=== PATIENT | male | born 1975 | race Caucasian/White ===

== ENCOUNTER 2022-05-12 07:00 | Outpatient (CLI) | payer OTHER, SELFPAY ==
--- NOTE | 2022-05-12 07:15 | CRLHL7_ITS ---
For Patients: As a result of the Century Cures Act, medical imaging exams and procedure reports are released immediately into your electronic medical record. You may view this report before your referring provider. If you have questions, please contact your health care provider. INDICATION: Neck pain. Left arm pain TECHNIQUE: Noncontrast sagittal T1, T2, STIR and axial GRE sequences are provided. No comparisons. FINDINGS: The overall stature, alignment and intrinsic marrow signal of the cervical spine is within normal limits. Cervical cord is normal. C2-3: Unremarkable C3-4, C4-5, C5-6, C6-7: Minor disc osteophyte complex effaces the ventral thecal sac but results in no central canal or foraminal narrowing. C7-T1: Unremarkable. IMPRESSION: 1. Minor degenerative changes within the mid cervical spine resulting in no significant central canal or foraminal narrowing. 2. Otherwise, unremarkable MRI of the cervical spine. Dictated by Luca Valle MD @ 05/12/2022 8:41:40 AM (Electronically Signed)
== END 2022-05-12 07:01 | disposition home or self-care (01) ==
PROVIDERS: PCP Family Medicine; Visit Provider Chiropractor
DX: M54.2 Cervicalgia (principal); M79.622 Pain in left upper arm
CPT/HCPCS: 72141

== ENCOUNTER 2023-01-25 12:40 | Emergency (ER) | payer OTHER, SELFPAY ==
[2023-01-25] VITALS (11 sets, daily range): BP systolic 133–174; BP diastolic 72–95; PULSE 70–88; RESP 14–22; TEMP 37.1; O2SAT 95–100
--- NOTE | 2023-01-25 16:03 | ED_ITS ---
HPI - General Adult General Time Seen by Provider: 16:07 Date Seen: 01/25/23 Chief complaint: Flank Pain Stated complaint: Kidney Stones Time Seen by Provider: 01/25/23 16:01 Source: patient and RN notes reviewed Mode of arrival: ambulatory Limitations: no limitations History of Present Illness HPI narrative: When I initially went into see the patient, he was in the bathroom collecting his urine. I did speak with his , they were in the ER in [facility] [place] [address] on Wednesday, was diagnosed with a kidney stone. He was given Percocet and then has been using ibuprofen for pain management. He has been using Zofran for nausea. Wednesday felt a bit better, did eat some. Has been drinking throughout this but really since Wednesday has not eaten. He has not had a bowel movement through this. The did try milk of magnesium twice yesterday in MiraLax. Did try an enema this morning. He is having ongoing abdominal pain but no fevers. I did come back to and he was gone at CT, the 3rd time he was in the room, was comfortable, really had no more pain or nausea. Had had improvement with the Toradol in Zofran that I ordered. He has had nausea wit hout vomiting. This is his 1st diagnosis of a kidney stone. He was not placed on Flomax in the do have a friend that is a nurse, he is interested in trying this to see if it does help. States he was told he had a 2 mm stone. His symptoms are on the left side. His pain does radiate towards the testicle. He notes that his blood pressure is up, we did review that pain and stressful situations like being in the ED can certainly do this. Would recommend that he observe for now, see how his blood pressure is once this is all resolved. Related Data Home Medications Medication Instructions Recorded Confirmed ibuprofen 600 mg tablet 600 mg PO 3XD 01/25/23 01/25/23 ondansetron 4 mg disintegrating mg PO 01/25/23 tablet oxycodone-acetaminophen 5 mg-325 1 - 2 tab PO Q4-6H PRN pain 01/25/23 01/25/23 mg tablet Previous Rx's Medication Instructions Recorded sennosides 8.6 mg capsule (senna) 8.6 mg PO BID PRN constipation #30 01/25/23 caps tamsulosin 0.4 mg capsule (Flomax) 0.4 mg PO DAILY #10 caps 01/25/23 Allergies Allergy/AdvReac Type Severity Reaction Status Date / Time No Known Drug Allergies Allergy Unknown Uncoded 05/28/22 15:17 Review of Systems Status of ROS: Reports: 6 or more systems reviewed and unremarkable except as noted in History and below PFSH PFSH Social History Smoking Status: Never smoker Do you use any of these nicotine containing products: None How often do you have a drink containing alcohol: never How often do you have six or more drinks on one occasion: Never AUDIT-C Alcohol total score: 0 Non-prescribed substance use: denies use Exam Const: Vital Signs, click to edit/add: Vital Signs - 24 hr 01/25/23 12:45 01/25/23 15:44 01/25/23 16:18 Temperature 98.7 F Pulse Rate [Right Pulse Oximeter] 88 75 73 Respiratory Rate 22 14 18 Blood Pressure [Ri ght Upper Arm] 174/72 H 133/82 149/95 H Pulse Oximetry 100 98 96 Oxygen Delivery Me thod Room Air Room Air Room Air 01/25/23 16:25 Temperature Pulse Rate [Right Pulse Oximeter] Respiratory Rate Blood Pressure [Ri ght Upper Arm] Pulse Oximetry 97 Oxygen Delivery Me thod Course Course ED Course: Will reimage patient, establish IV, initiate IV fluids, IV Toradol, IV Zofran. We will see if the initial assessment of the CT is correct, also look at bowel for constipation. Will recheck basic labs. His had reviewed that his initial white blood count on Wednesday was elevated, did review with him that this frequently can be the case was this is a very significant painful process. If he is not having fever, that is very reassuring. Reevaluation(s) Time of Reevaluation #1: 19:23 Reevaluation #1: Have reviewed his CT report with him, 2-3 mm stone that has moved down and is at the proximal UVJ. His creatinine is at 2, on January 22 it was 1.17. White blood count on January 22 was 14,500, this is stable to slightly better today. Patient reports that he only has 1 tablet of Percocet left, 2 tablets of Zofran. Will give Toradol 20 tablets, Percocet 10 tablets and Zofran 10 tablets from [facility]. Will send in the Flomax prescription to his usual pharmacy. I will try to talk to Urology keon about his creatinine, believe they will likely just have him followed clinically but will attempt to review this with them. Consultations Consultation #1: Spoke with Urology on-call. He did sure concerns with my questioning of the creatinine going from 1.17-2 from Wednesday. He would question why the other kidney was not function as well to cover the filtration. I asked generally what they would do to test for functionality of the kidneys, he states the usually consult Nephrology. There are no beds at [facility] right now, there is no possible transfer. He did have recommendation of observing the patient overnight here and hydrating him, rechecking kidney function morning and potential referral if not improved. I did bring this back to the patient, he does not want to come into the hospital. I a have discussed with him that there can be kidney damage, this is something that needs to be followed. He states he will get an outpatient creatinine at his clinic tomorrow. Did review with him that we need to alter the plan and he should not take further Toradol or ibuprofen until we know his kidney function is improving. He is fine with just using the Percocet. Time: 19:39 Vital Signs Vital signs: Initial Vital Signs Temperature 98.7 F 01/25/23 12:45 Temperature Source Temporal Artery Scan 01/25/23 12:45 Pulse Rate 88 01/25/23 12:45 Pulse Rhythm Regular 01/25/23 12:45 Respiratory Rate 22 01/25/23 12:45 Blood Pressure 174/72 H 01/25/23 12:45 Blood Pressure Mean 106 H 01/25/23 12:45 Blood Pressure Position Sitting 01/25/23 12:45 Pulse Oximetry 100 01/25/23 12:45 Oxygen Delivery Method Room Air 01/25/23 12:45 Vital Signs Temperature 98.7 F 01/25/23 12:45 Pulse Rate 88 01/25/23 12:45 Respiratory Rate 22 01/25/23 12:45 Blood Pressure 174/72 H 01/25/23 12:45 Pulse Oximetry 100 01/25/23 12:45 Oxygen Delivery Method Room Air 01/25/23 12:45 Temperature 98.7 F 01/25/23 12:45 Pulse Rate 73 01/25/23 16:18 Respiratory Rate 18 01/25/23 16:18 Blood Pressure 149/95 H 01/25/23 16:18 Pulse Oximetry 97 01/25/23 16:25 Oxygen Delivery Method Room Air 01/25/23 16:18 Medications Administered Medications: Generic Name Dose Route Start Last Admin Trade Name Odin PRN Reason Stop Dose Admin Sodium Chloride 1,000 mls @ 1,000 mls/hr 01/25/23 18:27 01/25/23 19:58 0.9 % Sodium Chloride 1000 Ml IV 01/25/23 19:26 Infused .Q1H VELMA Infusion Discontinued Medications Generic Name Dose Route Start Last Admin Trade Name Odin PRN Reason Stop Dose Admin Sodium Chloride 1,000 mls @ 500 mls/hr 01/25/23 16:10 01/25/23 18:40 0.9 % Sodium Chloride 1000 Ml IV 01/25/23 18:09 Infused .Q2H VELMA Infusion Ketorolac Tromethamine 15 mg 01/25/23 16:10 01/25/23 16:10 Ketorolac 15 Mg/Ml Inj IVP 01/25/23 16:11 15 mg ONCE ONE Administration Tamsulosin HCl 0.4 mg 01/25/23 17:24 01/25/23 17:40 Tamsulosin Hcl 0.4 Mg Capsule PO 01/25/23 17:25 0.4 mg ONCE ONE Administration Medical Decision Making Lab Data Lab results reviewed: Yes I reviewed the patient's lab results Labs: Lab Results 01/25/23 01/25/23 Range/Units 16:20 17:00 WBC 12.97 H (4.50-11.00) K/uL RBC 5.24 (4.30-5.90) m/uL Hgb 15.9 (13.5-17.5) gm/dL Hct 47.0 (37.0-53.0) % MCV 90 (80-100) fL MCH 30 (26-34) pg MCHC 34 (32-36) gm/dL RDW Coeff of Govind 12.6 (11.5-15.5) % Plt Count 231 (140-440) K/uL Neut % (Auto) 81.4 H (42.0-72.0) % Lymph % (Auto) 9.4 L (20-44) % [place] % (Auto) 8.7 (0.0-11.0) % Eos % (Auto) 0.2 (0.0-7.0) % Baso % (Auto) 0.1 (0.0-3.0) % Neut # (Auto) 10.60 H (1.7-7.0) K/uL Lymph # (Auto) 1.20 (0.90-2.90) K/uL [place] # (Auto) 1.10 H (0.00-0.90) K/UL Eos # (Auto) 0.00 (0.00-0.50) K/uL Baso # (Auto) 0.00 (0.00-0.30) K/uL Abs Immat Gran (auto) 0.00 (0.00-0.30) K/uL Imm/Tot Granulo (auto) 0.2 % Sodium 136 (135-149) mmol/L Potassium 4.1 (3.6-5.1) mmol/L Chloride 101 (96-114) mmol/L Carbon Dioxide 25 (20-32) mmol/L Anion Gap 10 (7-15) mEq/L BUN 19 (5-24) mg/dL Creatinine 2.0 H (0.5-1.5) mg/dL Estimated GFR 40 ml/min Glucose 108 (60-115) mg/dL Lactate 1.3 (0.5-1.9) mmol/L Calcium 9.2 (8.4-10.6) mg/dL C-Reactive Protein 6.4 H (0.5-1.0) mg/dL Urine Color Yellow (Yellow) Urine Appearance Clear (Clear) Urine pH 5.5 (5.0-8.5) Ur Specific [place] 1.020 (1.000-1.030) Urine Protein Negative (Negative) Urine Glucose (UA) Negative (Negative) Urine Ketones 3+ A (Negative) Urine Blood Trace-lysed A (Negative) Urine Nitrite Negative (Negative) Urine Bilirubin Negative (Negative) Urine Urobilinogen 0.2 (0.2-1.0) Ur Leukocyte Esterase Negative (Negative) Urine RBC 2-5 A (0-2) Urine WBC 2-5 (0-5) Ur Squamous Epith Cells None (None-Few) Amorphous Sediment Few A (None) Urine Bacteria None (None) Imaging Data CT scan - abdomen: Attestation: I have reviewed the pertinent imaging results. My impression: Did review CT, do see small stone on the left side juxtaposed next to the bladder, will await Radiology over-read. Radiologist's impression: Patient: STACI NELSON Facility:?[facility] Patient ID:?[id number] Site Patient ID:?[id number]. Site :?[id number] Study:?CT Abdomen/Pelvis STONE STUDY-01/25/2023 5:10:41 PM Ordering Physician:Mannie Anaya Final Report: INDICATION: Worsening abdominal pain. History of a kidney stone. TECHNIQUE: CT abdomen and pelvis without contrast. COMPARISON: 01/22/2023 FINDINGS: A 2-3 mm distal left ureteral stone has migrated further distally, and is now just proximal to the UVJ. There is relatively stable mild left-sided hydroureteronephrosis. The remainder of the exam is essentially unchanged other than the development of mild bibasilar atelectasis. IMPRESSION: See above. Please note that all CT scans at this facility use dose modulation, iterative reconstruction, and/or weight-based dosing when appropriate to reduce radiation dose to as low as reasonably achievable. Dictated by Harpreet Burr MD @ 01/25/2023 7:06:21 PM (Electronic Signature) Discharge Plan Discharge Clinical Impression: Renal colic on left side Patient Disposition: Home, Self-Care Condition: Stable Instructions: Kidney Stones (ED), Renal Colic (ED) Additional Instructions: Can use the Percocet for more severe pain. Prescription for Zofran was also given. Take the Flomax daily until the stone has passed. Need to have your creatinine rechecked tomorrow, if it is further elevating, need to be seen where there is urology. If the stone is not passing an your kidney function continues to increase, develops severe abdominal pain or fever, have vomiting that will not allow you to take medicines with an on passed kidney stone, all of the should cause you to seek re-evaluation. If using the Percocet, use MiraLax 17 g daily. Start with senna 1 tablet twice a day, can move up to 2 tablets twice a day if needed to help control narcotic associated constipation. Once you are off the Percocet, your bowel habits should return to normal and you can wean off the stool medications. Do not recommend further use of the ibuprofen or NSAIDs, do not take the Toradol until kidney function is shown to be improved or normalized. Activity Level: Activity as Tolerated Prescriptions: New senna 8.6 mg capsule 8.6 mg PO BID PRN (Reason: constipation) Qty: 30 0RF tamsulosin [Flomax] 0.4 mg capsule 0.4 mg PO DAILY Qty: 10 0RF No Action oxycodone-acetaminophen 5-325 mg tablet 1 - 2 tab PO Q4-6H PRN (Reason: pain) ibuprofen 600 mg tablet 600 mg PO 3XD ondansetron 4 mg tablet,disintegrating PO Follow Up/Referrals: Skip Hernandez MD [Primary Care Provider] - Stand Alone Forms: [employer] Info Instructions
--- NOTE | 2023-01-25 16:09 | CRLHL7_ITS ---
For Patients: As a result of the Century Cures Act, medical imaging exams and procedure reports are released immediately into your electronic medical record. You may view this report before your referring provider. If you have questions, please contact your health care provider. INDICATION: Worsening abdominal pain. History of a kidney stone. TECHNIQUE: CT abdomen and pelvis without contrast. COMPARISON: 01/22/2023 FINDINGS: A 2-3 mm distal left ureteral stone has migrated further distally, and is now just proximal to the UVJ. There is relatively stable mild left-sided hydroureteronephrosis. The remainder of the exam is essentially unchanged other than the development of mild bibasilar atelectasis. IMPRESSION: See above. Please note that all CT scans at this facility use dose modulation, iterative reconstruction, and/or weight-based dosing when appropriate to reduce radiation dose to as low as reasonably achievable. Dictated by Harpreet Burr MD @ 01/25/2023 7:06:21 PM (Electronically Signed)
[2023-01-25] MEDS: KETOROLAC 15 MG/ML inj IVP (16:10)
[2023-01-25] MEDS: 0.9 % SODIUM CHLORIDE 1000 ml 1,000 ML 500 ML IV (16:10)
[2023-01-25 16:27] LABS: Lactate* 1.3 mmol/L (0.5-1.9)
[2023-01-25 16:29] LABS: Basophils Percent Auto 0.1 % (0.0-3.0); Eosinophils Percent Auto 0.2 % (0.0-7.0); Hemoglobin* 15.9 gm/dL (13.5-17.5); Immature Granulocytes Pct Auto 0.2 %; Lymphocytes Percent Auto 9.4 % (20-44); Mean Corpuscular HGB Conc 34 gm/dL (32-36); Mean Corpuscular Hemoglobin 30 pg (26-34); Mean Corpuscular Volume 90 fL (80-100); Monocytes Percent Auto 8.7 % (0.0-11.0); Neutrophils Percent Auto 81.4 % (42.0-72.0); Platelet Count* 231 K/uL (140-440); RDW Coefficient of Variation % 12.6 % (11.5-15.5); Red Blood Count 5.24 m/uL (4.30-5.90); White Blood Count* 12.97 K/uL (4.50-11.00)
[2023-01-25 16:30] LABS: Slide Review Reflex No
[2023-01-25 16:49] LABS: Chloride* 101 mmol/L (96-114)
[2023-01-25 16:50] LABS: Potassium* 4.1 mmol/L (3.6-5.1); Sodium* 136 mmol/L (135-149)
[2023-01-25 16:52] LABS: Estimated Glomerular Filt Rate 40 ml/min
[2023-01-25 16:53] LABS: Anion Gap 10 mEq/L (7-15); Blood Urea Nitrogen* 19 mg/dL (5-24); Carbon Dioxide* 25 mmol/L (20-32); Glucose* 108 mg/dL (60-115)
[2023-01-25 16:54] LABS: Calcium* 9.2 mg/dL (8.4-10.6)
[2023-01-25 16:56] LABS: C Reactive Protein* 6.4 mg/dL (0.5-1.0)
[2023-01-25] MEDS: TAMSULOSIN HCL 0.4 MG CAPSULE PO (17:40)
[2023-01-25 18:03] LABS: Appearance Urine Clear (Clear); Bilirubin Urine Negative (Negative); Blood Urine Trace-lysed (Negative); Color Urine Yellow (Yellow); Glucose Urine Negative (Negative); Ketones Urine 3+ (Negative); Leukocyte Esterase Urine Negative (Negative); Nitrite Urine Negative (Negative); Protein Urine Negative (Negative); Urobilinogen Urine 0.2 (0.2-1.0); pH Urine 5.5 (5.0-8.5)
[2023-01-25 18:26] LABS: Amorphous Sediment Urine Few
[2023-01-25] MEDS: 0.9 % SODIUM CHLORIDE 1000 ml 1,000 ML IV (19:00)
--- NOTE | 2023-01-25 19:15 | ED.NURSE ---
Pt report given off to oncoming RN
== END 2023-01-25 20:33 | disposition home or self-care (01) ==
PROVIDERS: Emergency Provider Family Medicine; PCP Family Medicine
DX: N23 Unspecified renal colic (principal)
CPT/HCPCS: 36415; 74176; 80048; 81001; 83605; 85025; 86140; 87086; 94761; 96361; 96365; 96374; 96375; 99284; 99285; A9270; J1885; J7030

== ENCOUNTER 2023-01-28 04:51 | Emergency (ER) | payer OTHER, SELFPAY ==
[2023-01-28 04:57] VITALS: BP 146/80; PULSE 104; RESP 16; TEMP 37.2; O2SAT 98; BMI 27.7
[2023-01-28 05:15] LABS: Appearance Urine Clear (Clear); Bilirubin Urine Negative (Negative); Blood Urine 1+ (Negative); Color Urine Yellow (Yellow); Glucose Urine Negative (Negative); Ketones Urine Negative (Negative); Leukocyte Esterase Urine Negative (Negative); Nitrite Urine Negative (Negative); Protein Urine Negative (Negative); Urobilinogen Urine 0.2 (0.2-1.0)
[2023-01-28 05:24] LABS: RBC Urine 0-2 (0-2); Squamous Epithelial Cell Urine Few (None-Few); WBC Urine 0-2 (0-5)
--- NOTE | 2023-01-28 05:25 | CRLHL7_ITS ---
For Patients: As a result of the Century Cures Act, medical imaging exams and procedure reports are released immediately into your electronic medical record. You may view this report before your referring provider. If you have questions, please contact your health care provider. INDICATION: Fever right-sided abdominal pain, recently passed left stone COMPARISON: 01/22/2023, 01/25/2023 TECHNIQUE: CT of the abdomen and pelvis without intravenous contrast. Multiplanar axial, coronal, and sagittal reformats were reconstructed. Intravenous contrast: None. Oral contrast was not administered. FINDINGS: Lung bases: Bibasilar atelectasis. Liver: Normal size and non-contrast attenuation. Gallbladder and biliary tree: Normal gallbladder. No biliary duct dilation. Pancreas: Normal. Spleen: Normal size. Adrenal glands: Normal. No nodules. Kidneys and bladder: Normal size and position. No obvious cyst or mass. No calculi. No urinary tract dilation. The urinary bladder is normal. GI: Normal. No dilated segments. No abnormal bowel wall thickening. Moderate stool burden. The appendix is normal. Vessels: Normal caliber abdominal aorta with no calcified atherosclerotic plaques. Peritoneum: No free fluid. Lymph nodes: No adenopathy. Pelvis: Physiologic appearance of the reproductive organs. Bones: No fractures. No focal bone lesions. Normal for age. Abdominal wall: Fat containing left inguinal hernia. IMPRESSION: 1. Resolve urinary tract calculi and urinary tract dilatation. 2. Mild bibasilar atelectasis which is slightly worse than the most recent comparison. 3. Moderate stool burden which is minimally increased compared to previous exams. Please note that all CT scans at this facility use dose modulation, iterative reconstruction, and/or weight-based dosing when appropriate to reduce radiation dose to as low as reasonably achievable. Dictated by Soco Adrian MD @ 01/28/2023 7:05:33 AM (Electronically Signed)
[2023-01-28 05:36] LABS: Lactate* 1.1 mmol/L (0.5-1.9)
[2023-01-28 05:37] LABS: Basophils Absolute Auto 0.02 K/uL (0.00-0.30); Basophils Percent Auto 0.2 % (0.0-3.0); Eosinophils Absolute Auto 0.12 K/uL (0.00-0.50); Eosinophils Percent Auto 1.1 % (0.0-7.0); Hematocrit 41.8 % (37.0-53.0); Hemoglobin* 14.1 gm/dL (13.5-17.5); Immature Granulocytes Abs Auto 0.02 K/uL (0.00-0.30); Immature Granulocytes Pct Auto 0.2 %; Mean Corpuscular HGB Conc 34 gm/dL (32-36); Mean Corpuscular Hemoglobin 31 pg (26-34); Mean Corpuscular Volume 90 fL (80-100); Monocytes Percent Auto 8.7 % (0.0-11.0); Neutrophils Percent Auto 83.8 % (42.0-72.0); Platelet Count* 213 K/uL (140-440); RDW Coefficient of Variation % 12.7 % (11.5-15.5); Red Blood Count 4.63 m/uL (4.30-5.90); White Blood Count* 10.88 K/uL (4.50-11.00)
--- NOTE | 2023-01-28 05:37 | ED.GENADULT ---
HPI - General Adult General Chief complaint: Fever Stated complaint: fever after passing kidney stone Time Seen by Provider: 01/28/23 04:57 Source: patient Mode of arrival: ambulatory Limitations: no limitations History of Present Illness HPI narrative: 47-year-old male presents to the emergency department with fever and new onset right flank pain. Patient has a notable history of a kidney stone diagnosed last Wednesday which is 6 days ago. This was diagnosed in [place] per his report. He was evaluated in our ED 3 days ago. At that point the stone had moved to the UVJ and was 2-3 mm in size, on the left side. He had been having some mild constipation at the time but no fever. Notes are reviewed. He was given a few more Percocet tablets. His creatinine had gone up from 1.17 to 2. He declined admission and had the labs repeated the next day through his primary care provider and his creatinine had improved. It was suspected that the stone had then passed into the bladder. Within a few hours, he did pass a stone which he has strained and brought in to me today. He shows me a picture of the strainer and there was a little bit of blood in a touch of additional sediment and mucus associated with this as well. He has no other localizing symptoms of infection. There is no cough, no rash. He denies any jadyn dysuria. He did feel a little weak and generally unwell yesterday afternoon, fever up to 101 at home yesterday overnight. Has not tried any other interventions to help with symptoms. Did have a couple of small, hard bowel movements yesterday, does not feel as though the constipation is completely relieved but has not needed any narcotic medications for the last few days. Notes from 3 days ago reviewed. There was no jadyn stones seen on the right but I do view the images and I can see some tiny granular material on the right and the left side but nothing that would have been and at destructive type kidney stone besides the lesion known in the left UVJ. He does note some mild diffuse abdominal pain but mainly right lower flank area pain, achy and intermittent. No new injury or trauma. Past medical history is reviewed, no major long-term health problems. No prescription medications, no allergies. Nonsmoker. ROS is notable for the flank pain, generalized achiness and fever as stated above. Otherwise he denies times 12 systems. Related Data Home Medications Medication Instructions Recorded Confirmed oxycodone-acetaminophen 5 mg-325 1 - 2 tab PO Q4-6H PRN pain 01/25/23 01/25/23 mg tablet Previous Rx's Medication Instructions Recorded sennosides 8.6 mg capsule (senna) 8.6 mg PO BID PRN constipation #30 01/25/23 caps tamsulosin 0.4 mg capsule (Flomax) 0.4 mg PO DAILY #10 caps 01/25/23 nirmatrelvir 300 mg (150 mg See Rx Instructions PO .COMPLEX 01/28/23 x2)-ritonavir 100 mg tablet,dose #30 ea pack (Paxlovid) Allergies Allergy/AdvReac Type Severity Reaction Status Date / Time No Known Drug Allergies Allergy Unknown Uncoded 05/28/22 15:17 PFSH PFS Social History Smoking Status: Never smoker Do you use any of these nicotine containing products: None How often do you have a drink containing alcohol: never How often do you have six or more drinks on one occasion: Never AUDIT-C Alcohol total score: 0 Non-prescribed substance use: denies use Exam Const: Vital Signs, click to edit/add: Vital Signs - 24 hr 01/28/23 04:57 Temperature 98.9 F Pulse Rate [Pulse Oximeter] 104 H Respiratory Rate 16 Blood Pressure [Le ft Upper Arm] 146/80 H Pulse Oximetry 98 Oxygen Delivery Me thod Room Air Documenting provider has reviewed patient's vital signs: yes Common normals: no apparent distress and alert General appearance: cooperative, comfortable and well kempt HENMT: Common normals: normocephalic Head and scalp: normocephalic Face and sinus: normal facial exam Mouth: oral and palatal mucosa normal Eye: Common normals: conjunctivae normal General eye: normal appearance of both eyes Conjunctiva: conjunctiva(e) normal Neck & C-Spine: Common normals: full ROM and no lymphadenopathy Resp: Common normals: normal respiratory effort and no use of accessory muscles Effort & inspection: able to speak in complete sentences Cardio: Common normals: regular rate, regular rhythm, S1 normal heart sound, S2 normal heart sound and no murmurs Rate: regular rate Rhythm: regular rhythm Heart sounds: S1 normal and S2 normal GI: Common normals: Normal to inspection, nondistended, normoactive bowel sounds present, soft to palpation, non-tender, no hepatosplenomegaly and no masses Palpation: soft and no hepatosplenomegaly : Other: Mild lower right CVA area tenderness, not severe. Back & Pelvis: Thoracic spine/upper back: normal to inspection Extremity: Common normals: normal to inspection and normal capillary refill Neuro: Sensorium/orientation: alert Speech: speech normal Gait (neuro): normal gait Motor exam: no movement abnormalities noted Psych: Appearance: well kempt Attitude: engaged Activity/motor behavior: appropriate eye contact Mood and affect: euthymic mood Insight: insight good Judgement: judgment good Skin: Common normals: no rashes or lesions noted General skin exam: no rashes or lesions noted Course Course ED Course: Recent known left UVJ stone, likely passed based on symptoms. Recent elevation in creatinine that was corrected outpatient per patient. New onset fever concerning for infection. Mild tachycardia noted today. Concern for right-sided flank pain now which could be related to intra-abdominal processes, appendicitis, musculoskeletal etiology, constipation, urinary infection, new kidney stone, among others. I recommended repeat CT scan, basic labs, lactate, blood cultures. He declines pain medication at this time. I have also ordered a swab for COVID, influenza and other etiologies for fever. Results pending. Reevaluation(s) Time of Reevaluation #1: 07:11 Reevaluation #1: Patient counseled on findings, Paxlovid discussed. He accepts offer. No signs of kidney infection, retained stone, other intra-abdominal cause. Lab work is also reassuring. Suspect COVID is etiology of fever. Flank pain most likely related to constipation but could be multifactorial. Nonetheless no signs of any significant worrisome finding. Alarm symptoms regarding COVID discussed. He verbalizes understanding and agreement. Does want to start Paxlovid. Quarantine discussed. All questions answered. Follow-up if not improving Vital Signs Vital signs: Initial Vital Signs Temperature 98.9 F 01/28/23 04:57 Temperature Source Temporal Artery Scan 01/28/23 04:57 Pulse Rate 104 H 01/28/23 04:57 Respiratory Rate 16 01/28/23 04:57 Blood Pressure 146/80 H 01/28/23 04:57 Blood Pressure Mean 102 01/28/23 04:57 Blood Pressure Position Sitting 01/28/23 04:57 Pulse Oximetry 98 01/28/23 04:57 Oxygen Delivery Method Room Air 01/28/23 04:57 Vital Signs Temperature 98.9 F 01/28/23 04:57 Pulse Rate 104 H 01/28/23 04:57 Respiratory Rate 16 01/28/23 04:57 Blood Pressure 146/80 H 01/28/23 04:57 Pulse Oximetry 98 01/28/23 04:57 Oxygen Delivery Method Room Air 01/28/23 04:57 Temperature 98.9 F 01/28/23 04:57 Pulse Rate 104 H 01/28/23 04:57 Respiratory Rate 16 01/28/23 04:57 Blood Pressure 146/80 H 01/28/23 04:57 Pulse Oximetry 98 01/28/23 04:57 Oxygen Delivery Method Room Air 01/28/23 04:57 Medical Decision Making Lab Data Lab results reviewed: Yes I reviewed the patient's lab results Lab results narrative: Overall reassuring, COVID positive. No signs of overwhelming leukocytosis, slight left shift noted. Mild elevation of CRP but could be explained by the COVID. Urinalysis is unremarkable for infection. Labs: Lab Results 01/28/23 01/28/23 01/28/23 Range/Units 05:03 05:10 05:30 WBC 10.88 (4.50-11.00) K/uL RBC 4.63 (4.30-5.90) m/uL Hgb 14.1 (13.5-17.5) gm/dL Hct 41.8 (37.0-53.0) % MCV 90 (80-100) fL MCH 31 (26-34) pg MCHC 34 (32-36) gm/dL RDW Coeff of Govind 12.7 (11.5-15.5) % Plt Count 213 (140-440) K/uL Neut % (Auto) 83.8 H (42.0-72.0) % Lymph % (Auto) 6.0 L (20-44) % [place] % (Auto) 8.7 (0.0-11.0) % Eos % (Auto) 1.1 (0.0-7.0) % Baso % (Auto) 0.2 (0.0-3.0) % Neut # (Auto) 9.10 H (1.7-7.0) K/uL Lymph # (Auto) 0.70 L (0.90-2.90) K/uL [place] # (Auto) 0.90 (0.00-0.90) K/UL Eos # (Auto) 0.12 (0.00-0.50) K/uL Baso # (Auto) 0.02 (0.00-0.30) K/uL Abs Immat Gran (auto) 0.02 (0.00-0.30) K/uL Imm/Tot Granulo (auto) 0.2 % Sodium 136 (135-149) mmol/L Potassium 4.1 (3.6-5.1) mmol/L Chloride 104 (96-114) mmol/L Carbon Dioxide 24 (20-32) mmol/L Anion Gap 8 (7-15) mEq/L BUN 13 (5-24) mg/dL Creatinine 0.9 (0.5-1.5) mg/dL Estimated Creat Clear 112.21 Estimated GFR 105 ml/min Glucose 116 H (60-115) mg/dL Lactate 1.1 (0.5-1.9) mmol/L Calcium 8.9 (8.4-10.6) mg/dL Total Bilirubin 0.7 (0.1-1.5) mg/dL AST 26 (12-35) U/L ALT 25 (4-50) U/L Alkaline Phosphatase 69 (40-150) U/L C-Reactive Protein 4.8 H (0.5-1.0) mg/dL Total Protein 7.5 (6.0-8.3) g/dL Albumin 4.4 (3.3-5.0) g/dL Urine Color Yellow (Yellow) Urine Appearance Clear (Clear) Urine pH 6.0 (5.0-8.5) Ur Specific [place] 1.020 (1.000-1.030) Urine Protein Negative (Negative) Urine Glucose (UA) Negative (Negative) Urine Ketones Negative (Negative) Urine Blood 1+ A (Negative) Urine Nitrite Negative (Negative) Urine Bilirubin Negative (Negative) Urine Urobilinogen 0.2 (0.2-1.0) Ur Leukocyte Esterase Negative (Negative) Urine RBC 0-2 (0-2) Urine WBC 0-2 (0-5) Ur Squamous Epith Cells Few (None-Few) Urine Bacteria None (None) SARS-CoV-2 (PCR) POSITIVE SARS-CoV-2 A (Negative) Influenza Type A (PCR) Negative PCR FLU A (Negative) Influenza Type B (PCR) Negative PCR FLU B (Negative) RSV (PCR) Negative PCR RSV (Negative) Imaging Data CT scan - pelvis: Attestation: I have reviewed the pertinent imaging results. My impression: No new stone, previous stone has passed, hydro resolved. No obvious inflammation around the kidneys or appendicitis. Moderate stool burden. Contrast would have shown these other organs better but not necessary for medical decision making today. Radiologist's impression: IMPRESSION: 1. Resolve urinary tract calculi and urinary tract dilatation. 2. Mild bibasilar atelectasis which is slightly worse than the most recent comparison. 3. Moderate stool burden which is minimally increased compared to previous exams. Discharge Plan Discharge Clinical Impression: COVID Patient Disposition: Home w/ Parent or Adult Condition: Stable Instructions: COVID-19 (Coronavirus Disease 2019) (ED) Additional Instructions: As we discussed, you have tested positive for COVID. Thankfully there are no signs of urinary infection, kidney infection, kidney function problems, dehydration or other dangerous findings. Since you are vaccinated against COVID, your chances of complications or very low. We discussed the medication Paxlovid, I do recommend this for you. Side effects of loose stools, nausea and a metallic taste in the mouth are very common. The medication is taken twice daily. I do recommend 5 days of quarantine and then an additional 5 days with a mask after. Test herself if you are symptom-free starting on day 5 of illness and if your testing negative, it is okay to be around the general public. Unvaccinated household contacts should also quarantine. Vaccinated household contacts maybe in general public but should be wearing a mask. If you start feeling very ill, weak, very short of breath or have other signs of worsening illness, consider re-evaluation. It is okay to stop the Paxlovid if the side effects are too bothersome but there is not a good alternative. Activity Level: Activity as Tolerated Discharge Diet: Regular Prescriptions: New Paxlovid 300 mg (150 mg x 2)-100 mg tablets,dose pack See Rx Instructions .ROUTE .COMPLEX Qty: 30 0RF Rx Instructions: take TWO 150 mg tablets of nirmatrelvir with ONE 100 mg tablet of ritonavir twice daily for 5 days No Action oxycodone-acetaminophen 5-325 mg tablet 1 - 2 tab PO Q4-6H PRN (Reason: pain) senna 8.6 mg capsule 8.6 mg PO BID PRN (Reason: constipation) Qty: 30 0RF tamsulosin [Flomax] 0.4 mg capsule 0.4 mg PO DAILY Qty: 10 0RF Follow Up/Referrals: Skip Hernandez MD [Primary Care Provider] - Stand Alone [facility]: [facility] Info Instructions
[2023-01-28 05:39] LABS: Slide Review Reflex No
[2023-01-28 05:51] LABS: Albumin* 4.4 g/dL (3.3-5.0); Chloride* 104 mmol/L (96-114)
[2023-01-28 05:52] LABS: Potassium* 4.1 mmol/L (3.6-5.1); Sodium* 136 mmol/L (135-149)
[2023-01-28 05:53] LABS: PCR FLU A Negative PCR FLU A (Negative); PCR FLU B Negative PCR FLU B (Negative); PCR RSV Negative PCR RSV (Negative)
[2023-01-28 05:54] LABS: SARS PCR* POSITIVE SARS-CoV-2 (Negative)
[2023-01-28 05:54] LABS: Creatinine* 0.9 mg/dL (0.5-1.5); Est. Creatinine Clearance* 112.21; Estimated Glomerular Filt Rate 105 ml/min
[2023-01-28 05:55] LABS: Alanine Aminotransferase* 25 U/L (4-50); Alkaline Phosphatase* 69 U/L (40-150); Anion Gap 8 mEq/L (7-15); Aspartate Amino Transferase* 26 U/L (12-35); Bilirubin Total* 0.7 mg/dL (0.1-1.5); Blood Urea Nitrogen* 13 mg/dL (5-24); Calcium* 8.9 mg/dL (8.4-10.6); Carbon Dioxide* 24 mmol/L (20-32); Glucose* 116 mg/dL (60-115); Total Protein* 7.5 g/dL (6.0-8.3)
[2023-01-28 05:57] LABS: C Reactive Protein* 4.8 mg/dL (0.5-1.0)
[2023-01-28 07:32] VITALS: BP 129/78; PULSE 86; RESP 18; O2SAT 98
== END 2023-01-28 07:31 | disposition home or self-care (01) ==
PROVIDERS: Emergency Provider Family Medicine; PCP Family Medicine
DX: U07.1 COVID-19 (principal); R10.9 Unspecified abdominal pain
CPT/HCPCS: 36415; 74176; 80053; 81001; 83605; 85025; 86140; 87040; 87086; 87631; 99284

== ENCOUNTER 2023-01-30 07:29 | Emergency (ER) | payer OTHER, SELFPAY ==
[2023-01-30] VITALS (23 sets, daily range): BP systolic 120–138; BP diastolic 78–89; PULSE 76–95; RESP 30; TEMP 35.8; O2SAT 92–97; BMI 28.5
--- NOTE | 2023-01-30 08:25 | ED.CHESTPAIN ---
HPI - Chest Pain General Date Seen: 01/30/23 Chief Complaint: Flank Pain Stated Complaint: Shortness of breath, back pain, Covid + Time Seen by Provider: 01/30/23 07:55 Source: patient, family, EMS, RN notes reviewed and old records reviewed Mode of arrival: EMS Limitations: no limitations History of Present Illness HPI narrative: Patient is a 47-year-old gentleman who presents here with the a couple different complaints shortness of breath, and left-sided upper abdominal discomfort. This started approximately 4-6 a.m. overnight. He was checking his saturations at home, and said he was running around 90%, this worried him, any was having some left-sided chest discomfort. He is known to be COVID positive, as of Wednesday this week, is on Paxlovid. Also has a history of recent left-sided urolithiasis which she passed, he said this feels very consistent with this. Also has a history of constipation, no history of any heart disease he tells me, he has no history of any previous DVTs pulmonary emboli, or blood dyscrasias, he denies coughing up any blood, any fevers or chills, just feels more shortness of breath. He notes he has been to the ER now 4 times in the last few weeks. History chronic back issues, which she takes irregularly gabapentin. 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 Related Data Home Medications Medication Instructions Recorded Confirmed oxycodone-acetaminophen 5 mg-325 1 - 2 tab PO Q4-6H PRN pain 01/25/23 01/25/23 mg tablet Previous Rx's Medication Instructions Recorded sennosides 8.6 mg capsule (senna) 8.6 mg PO BID PRN constipation #30 01/25/23 caps tamsulosin 0.4 mg capsule (Flomax) 0.4 mg PO DAILY #10 caps 01/25/23 nirmatrelvir 300 mg (150 mg See Rx Instructions PO .COMPLEX 01/28/23 x2)-ritonavir 100 mg tablet,dose #30 ea pack (Paxlovid) apixaban 5 mg tablet 5 mg PO BID #180 tabs 01/30/23 oxycodone 5 mg tablet 5 mg PO Q8H PRN pain #14 tabs 01/30/23 Allergies Allergy/AdvReac Type Severity Reaction Status Date / Time No Known Drug Allergies Allergy Unknown Uncoded 01/30/23 09:26 Review of Systems Status of ROS Reports: 10 or more systems reviewed and unremarkable except as noted in History and below [facility] Social History Smoking Status: Never smoker Do you use any of these nicotine containing products: None How often do you have a drink containing alcohol: never How often do you have six or more drinks on one occasion: Never AUDIT-C Alcohol total score: 0 Non-prescribed substance use: denies use service: No Exam Narrative Exam Narrative: I find him in room 2, speaking to me in full sentences, he appears to be in no distress, per the nursing staff he was 92, % on room air, when he arrived, he is up to 96% on 2 L and says he does feel better. Vital signs show that he has tachypnea Pupils are equal round reactive to light there is no scleral icterus redness, hydration status is normal, TMs are normal, neck is supple, JVP is not elevated, carotid upstrokes are equal his cranial nerves 3-12 are otherwise normal, he is alert oriented x3 with a GCS of 15/15. Chest is decreased air entry bilaterally left slightly greater than right. He does have some mild crackles noted. No percussion tenderness is noted. Her sounds. There is no wheezing noted. His heart sounds are distant faint but S1-S2 is normal there is no S3-S4 clicks murmurs or gallops his abdomen is soft, there is no guarding, no hepatosplenomegaly. Bowel sounds are normal, he moves all extremities independently well with absence of any swelling, independently has good power 5/5 in his upper and lower extremities both distally and proximally, good sensation, there is no CVA tenderness noted. On palpation percussion over his CVA areas bilaterally, his back is nontender, and no tenderness to palpation skin reveals no petechiae rashes. Const Vital Signs, click to edit/add: Vital Signs - 24 hr 01/30/23 07:36 01/30/23 07:40 01/30/23 07:41 Temperature 96.5 F L Pulse Rate 95 95 Pulse Rate [Apical] 93 Respiratory Rate 30 H Blood Pressure 138/89 Blood Pressure [Right Upper Arm] 138/89 Pulse Oximetry 92 92 95 Oxygen Delivery Method Room Air 01/30/23 07:45 01/30/23 08:00 01/30/23 08:00 Temperature Pulse Rate 93 89 Pulse Rate [Apical] Respiratory Rate Blood Pressure Blood Pressure [Right Upper Arm] Pulse Oximetry 96 96 96 Oxygen Delivery Method 01/30/23 08:01 01/30/23 08:15 01/30/23 08:30 Temperature Pulse Rate 89 90 86 Pulse Rate [Apical] Respiratory Rate Blood Pressure 130/89 Blood Pressure [Right Upper Arm] Pulse Oximetry 96 95 96 Oxygen Delivery Method 01/30/23 08:31 01/30/23 08:45 01/30/23 09:00 Temperature Pulse Rate 87 87 83 Pulse Rate [Apical] Respiratory Rate Blood Pressure 127/82 Blood Pressure [Right Upper Arm] Pulse Oximetry 96 96 96 Oxygen Delivery Method 01/30/23 09:01 01/30/23 09:15 01/30/23 09:36 Temperature Pulse Rate 81 81 85 Pulse Rate [Apical] Respiratory Rate Blood Pressure 120/78 Blood Pressure [Right Upper Arm] Pulse Oximetry 96 96 97 Oxygen Delivery Method 01/30/23 09:45 01/30/23 10:00 01/30/23 10:02 Temperature Pulse Rate 79 79 78 Pulse Rate [Apical] Respiratory Rate Blood Pressure 131/88 Blood Pressure [Right Upper Arm] Pulse Oximetry 96 97 96 Oxygen Delivery Method 01/30/23 10:03 01/30/23 10:15 Temperature Pulse Rate 78 80 Pulse Rate [Apical] Respiratory Rate Blood Pressure Blood Pressure [Right Upper Arm] Pulse Oximetry 96 93 Oxygen Delivery Method Documenting provider has reviewed patient's vital signs: yes Course Course ED Course: Life-threatening differential diagnosis includes occluded COPD exacerbation, pulmonary edema, acute coronary syndromes, pulmonary embolism, pneumonia, and pneumothorax. Other differential diagnosis considerations include asthma, bronchitis as well as other etiologies During this evaluation of this patient I considered multiple differential diagnosis is which included the life-threatening such as appendicitis, aortic aneurysm, mesenteric ischemia, bowel perforation, volvulus, and bowel obstruction. Other differential diagnosis is include but are not limited to cholecystitis, pancreatitis, hepatitis, gastritis, GERD, diverticulitis, peptic ulcer disease, pyelonephritis/UTI, renal colic/stone, testicular torsion as well as other acute scrotal processes, inflammatory bowel disease, as well as other etiologies Reevaluation(s) Time of Reevaluation #1: 10:15 Reevaluation #1: Spoken to the , and patient, his CT scan by my review shows a large right-sided pulmonary embolism, confirmed by CT, no evidence of right ventricular strain, troponin is normal, EKG is normal. He is however on Paxlovid for his COVID, he is on day 4. I I will check the liver pool interaction tool checker, but no that Xarelto was a no go, apixaban is a possibility. If he is unable to wean off of his oxygen, get comfortable, then we will have to likely admit him. Time of Reevaluation #2: 11:05 Reevaluation #2: Spoke to the patient, discussed with him the relevance of being on thePaxlovid, the interactions with the anticoagulants, I explained to him the conversation with my pharmacist, we went through the guidelines, I think the lower dose of Eliquis 5 mg twice daily, for the duration of his treatment would make sense. We went over the risks benefits and side effects of this. He understands this. Vital Signs Vital signs: Initial Vital Signs Temperature 96.5 F L 01/30/23 07:36 Temperature Source Temporal Artery Scan 01/30/23 07:36 Pulse Rate 93 01/30/23 07:36 Pulse Rhythm Regular 01/30/23 07:36 Respiratory Rate 30 H 01/30/23 07:36 Blood Pressure 138/89 01/30/23 07:36 Blood Pressure Mean 105 01/30/23 07:36 Blood Pressure Position Supine 01/30/23 07:36 Pulse Oximetry 92 01/30/23 07:36 Oxygen Delivery Method Room Air 01/30/23 07:36 Vital Signs Temperature 96.5 F L 01/30/23 07:36 Pulse Rate 93 01/30/23 07:36 Respiratory Rate 30 H 01/30/23 07:36 Blood Pressure 138/89 01/30/23 07:36 Pulse Oximetry 92 01/30/23 07:36 Oxygen Delivery Method Room Air 01/30/23 07:36 Temperature 96.5 F L 01/30/23 07:36 Pulse Rate 80 01/30/23 10:15 Respiratory Rate 30 H 01/30/23 07:36 Blood Pressure 131/88 01/30/23 10:02 Pulse Oximetry 93 01/30/23 10:15 Oxygen Delivery Method Room Air 01/30/23 07:36 Medications Administered Medications: Discontinued Medications Generic Name Dose Route Start Last Admin Trade Name Odin PRN Reason Stop Dose Admin Apixaban 5 mg 01/30/23 10:51 01/30/23 10:54 Apixaban 5 Mg Tablet PO 01/30/23 10:52 5 mg ONCE ONE Administration Sodium Chloride 1,000 mls @ 1,000 mls/hr 01/30/23 08:15 01/30/23 09:47 0.9 % Sodium Chloride 1000 Ml IV 01/30/23 09:14 Infused .Q1H VELMA Infusion Ketorolac Tromethamine 30 mg 01/30/23 08:15 01/30/23 08:51 Ketorolac 30 Mg/Ml Inj IVP 01/30/23 08:16 30 mg ONCE ONE Administration Lorazepam 1 mg 01/30/23 08:17 01/30/23 08:50 Lorazepam 2 Mg/Ml Inj IVP 01/30/23 08:18 1 mg ONCE ONE Administration MDM - Chest Pain Medical Records Data Attestation: I reviewed the patient's medical records. Lab Data Attestation: I reviewed the patient's lab results. Labs: Lab Results 01/30/23 01/30/23 01/30/23 Range/Units 08:16 08:25 10:35 D-Dimer Quant (PE/DVT) 3.40 H (0.00-0.50) ug/ml Sodium 134 L (135-149) mmol/L Potassium 4.1 (3.6-5.1) mmol/L Chloride 100 (96-114) mmol/L Carbon Dioxide 23 (20-32) mmol/L Anion Gap 11 (7-15) mEq/L BUN 19 (5-24) mg/dL Creatinine 0.9 (0.5-1.5) mg/dL Estimated Creat Clear 108.98 Estimated GFR 105 ml/min Glucose 111 (60-115) mg/dL Calcium 8.9 (8.4-10.6) mg/dL C-Reactive Protein 15.4 H (0.5-1.0) mg/dL NT-Pro-B Natriuret Pep < 20 pg/mL Procalcitonin 0.10 (<0.50) ng/mL Urine Color Yellow (Yellow) Urine Appearance Slightly Cloudy A (Clear) Urine pH 5.5 (5.0-8.5) Ur Specific [place] <= 1.005 (1.000-1.030) Urine Protein Negative (Negative) Urine Glucose (UA) Negative (Negative) Urine Ketones 1+ A (Negative) Urine Blood Trace-lysed A (Negative) Urine Nitrite Negative (Negative) Urine Bilirubin Negative (Negative) Urine Urobilinogen 0.2 (0.2-1.0) Ur Leukocyte Esterase Negative (Negative) Urine RBC 0-2 (0-2) Urine WBC 0-2 (0-5) Ur Squamous Epith Cells Few (None-Few) Urine Bacteria Few A (None) POC Troponin I 0.00 L (0.01-0.04) ng/ml ECG Data Attestation: I personally reviewed and interpreted this ECG as follows: Interpretation: Normal sinus rhythm normal EKG, no ST wave abnormality, normal intervals Discharge Plan Discharge Clinical Impression: Flank pain with history of urolithiasis, COVID-19, Pulmonary embolism Patient Disposition: Home w/ Parent or Adult Condition: Stable Instructions: Pulmonary Embolism (ED), Kidney Stones (ED), How To Wash Your Hands (ED), Droplet Precautions (ED), Blood Thinners (ED), COVID-19 (Coronavirus Disease 2019) (ED) Additional Instructions: Home rest, take the Eliquis 5 mg by mouth twice daily. Lots of fluids and hydration use her oxycodone sparingly. May use some Tylenol with this, for discomfort. I would avoid using ibuprofen or Aleve. Recommend that you are off work for the next couple weeks, as it will really need to improve the situation so you can get around. As your on a blood thinner, any falling, hitting her head, severe nosebleeds, bleeding throwing up blood, or passing blood by rectum, you should come back and get seen. Increasing chest pain shortness of breath or other findings. Then you should also be seen. Recommend follow-up with your regular physician in the next week or so. Stop the Paxlovid, will keep you on the same dose of Eliquis. Activity Level: Light activity Discharge Diet: Regular Prescriptions: New apixaban 5 mg tablet 5 mg PO BID Qty: 180 0RF Rx Instructions: Patient to stop Paxlovid oxycodone 5 mg tablet 5 mg PO Q8H PRN (Reason: pain) Qty: 14 0RF No Action Paxlovid 300 mg (150 mg x 2)-100 mg tablets,dose pack See Rx Instructions .ROUTE .COMPLEX Qty: 30 0RF Rx Instructions: take TWO 150 mg tablets of nirmatrelvir with ONE 100 mg tablet of ritonavir twice daily for 5 days oxycodone-acetaminophen 5-325 mg tablet 1 - 2 tab PO Q4-6H PRN (Reason: pain) senna 8.6 mg capsule 8.6 mg PO BID PRN (Reason: constipation) Qty: 30 0RF tamsulosin [Flomax] 0.4 mg capsule 0.4 mg PO DAILY Qty: 10 0RF Follow Up/Referrals: Skip Hernandez MD [Primary Care Provider] - Stand Alone Forms: [facility] Info Instructions
[2023-01-30] MEDS: 0.9 % SODIUM CHLORIDE 1000 ml 1,000 ML IV (08:50)
[2023-01-30] MEDS: LORazepam 2 MG/ML inj 1 MG IVP (08:50)
[2023-01-30] MEDS: KETOROLAC 30 MG/ML inj IVP (08:51)
[2023-01-30 08:53] LABS: Chloride* 100 mmol/L (96-114); Potassium* 4.1 mmol/L (3.6-5.1); Sodium* 134 mmol/L (135-149)
[2023-01-30 08:56] LABS: Creatinine* 0.9 mg/dL (0.5-1.5); Est. Creatinine Clearance* 108.98; Estimated Glomerular Filt Rate 105 ml/min
[2023-01-30 08:57] LABS: Anion Gap 11 mEq/L (7-15); Blood Urea Nitrogen* 19 mg/dL (5-24); Calcium* 8.9 mg/dL (8.4-10.6); Carbon Dioxide* 23 mmol/L (20-32); Glucose* 111 mg/dL (60-115)
--- NOTE | 2023-01-30 09:11 | CRLHL7_ITS ---
For Patients: As a result of the Century Cures Act, medical imaging exams and procedure reports are released immediately into your electronic medical record. You may view this report before your referring provider. If you have questions, please contact your health care provider. INDICATION: Shortness of breath. COVID positive. Elevated D-dimer. Left-sided chest pain. Abdominal pain. TECHNIQUE: CT chest PE was acquired with 95 cc Isovue 370 IV contrast. COMPARISON: None. FINDINGS: Heart and vasculature: Moderate burden of central pulmonary emboli on the right with a saddle embolus at the bifurcation of the right main pulmonary artery best visualized on coronal series 6, image 145. heart size is normal. Thoracic aorta and pulmonary artery are normal in caliber. No sign of right heart strain. An aberrant right subclavian artery is present. Lungs and pleura: Moderate bibasilar atelectasis and/or infiltrates with trace adjacent pleural effusions. No pneumothorax. Lymph nodes/mediastinum: No mediastinal, hilar, or axillary adenopathy. Chest wall: No masses. Upper abdomen: No acute or significant findings. Bones: Unremarkable for age. IMPRESSION: 1. Moderate burden of central acute pulmonary emboli in the right lung without evidence of right heart strain. 2. Bibasilar atelectasis or infiltrates with trace pleural effusions. Please note that all CT scans at this facility use dose modulation, iterative reconstruction, and/or weight-based dosing when appropriate to reduce radiation dose to as low as reasonably achievable. Dictated by Rey Kang MD @ 01/30/2023 9:51:58 AM (Electronically Signed)
--- NOTE | 2023-01-30 09:11 | CRLHL7_ITS ---
For Patients: As a result of the Century Cures Act, medical imaging exams and procedure reports are released immediately into your electronic medical record. You may view this report before your referring provider. If you have questions, please contact your health care provider. INDICATION: Shortness of breath. COVID positive. Elevated D-dimer. Left-sided chest pain. Abdominal pain. TECHNIQUE: CT abdomen and pelvis acquired with 95 cc Isovue 370 IV contrast. COMPARISON: January 28, 2023. FINDINGS: Lower chest: Bibasilar atelectasis or infiltrates with trace pleural effusions. Liver: Unremarkable. Normal in size and attenuation. No suspicious masses. Gallbladder and bile ducts: Unremarkable. No stones or inflammation. No biliary dilatation. Pancreas: Unremarkable. No mass or inflammation. Spleen: Unremarkable. Normal in size. No masses. Adrenal glands: Unremarkable. No nodules. Kidneys: Unremarkable. No suspicious masses, stones, or hydronephrosis. GI tract: Unremarkable. Normal in caliber. No sign of mass or inflammation. Normal appendix. Vasculature: Abdominal aorta is normal in caliber. Mesenteric arteries are patent. Lymph nodes: No lymphadenopathy. Peritoneum/Abdominal Wall: Unremarkable. No sign of mass or infiltration. No free air or significant free fluid. Pelvis: Unremarkable. Bones: Unremarkable for age. IMPRESSION: 1. Moderate bibasilar atelectasis or pulmonary infiltrates with trace pleural effusions. 2. Unremarkable abdomen and pelvis. No specific finding to explain pain. Please note that all CT scans at this facility use dose modulation, iterative reconstruction, and/or weight-based dosing when appropriate to reduce radiation dose to as low as reasonably achievable. Dictated by Rey Kang MD @ 01/30/2023 9:57:36 AM (Electronically Signed)
[2023-01-30 09:16] LABS: C Reactive Protein* 15.4 mg/dL (0.5-1.0); NT Pro B Type NatriureticPept* < 20 pg/mL
--- NOTE | 2023-01-30 10:41 | ED.NURSE ---
Oxygen with ambulation without oxygen was 92%
[2023-01-30 10:44] LABS: Appearance Urine Slightly Cloudy (Clear); Bilirubin Urine Negative (Negative); Blood Urine Trace-lysed (Negative); Color Urine Yellow (Yellow); Glucose Urine Negative (Negative); Ketones Urine 1+ (Negative); Leukocyte Esterase Urine Negative (Negative); Nitrite Urine Negative (Negative); Protein Urine Negative (Negative); Specific Gravity Urine <= 1.005 (1.000-1.030); Urobilinogen Urine 0.2 (0.2-1.0); pH Urine 5.5 (5.0-8.5)
[2023-01-30] MEDS: APIXABAN 5 MG TABLET PO (10:54)
[2023-01-30 11:03] LABS: Bacteria Urine Few; RBC Urine 0-2 (0-2); Squamous Epithelial Cell Urine Few (None-Few); WBC Urine 0-2 (0-5)
== END 2023-01-30 11:18 | disposition home or self-care (01) ==
PROVIDERS: Emergency Provider Family Medicine; PCP Family Medicine
DX: R10.9 Unspecified abdominal pain (principal); U07.1 COVID-19; I26.99 Other pulmonary embolism without acute cor pulmonale
CPT/HCPCS: 36415; 71275; 74177; 80048; 81001; 83880; 84145; 84484; 85379; 86140; 87086; 93005; 94761; 96374; 96375; 99284; 99285; A9270; J1885; J2060; J7030; Q9967

== ENCOUNTER 2023-02-05 14:11 | Emergency (ER) | payer OTHER, SELFPAY ==
[2023-02-05 14:17] VITALS: BP 125/74; PULSE 106; RESP 20; TEMP 36.3; O2SAT 96; BMI 26.6
--- NOTE | 2023-02-05 15:42 | ED_ITS ---
HPI - General Adult General Chief complaint: Cough Stated complaint: Cough up blood-on blood thinner-covid+01/27 Time Seen by Provider: 02/05/23 15:28 History of Present Illness HPI narrative: This 47-year-old male comes in reporting small amount of blood in the sputum when coughing that happened twice today. He called the clinic and was told to come in here for evaluation. The patient is on Eliquis for recently diagnosed pulmonary embolism. Prior to this also he states that he had a kidney stone. He feels normal. He does have some pain in his left ribs and flank that is reproducible when palpating these areas. Related Data Home Medications Medication Instructions Recorded Confirmed gabapentin 300 mg capsule 300 - 600 mg PO QPM PRN low back 02/05/23 02/05/23 pain Previous Rx's Medication Instructions Recorded tamsulosin 0.4 mg capsule (Flomax) 0.4 mg PO DAILY #10 caps 01/25/23 apixaban 5 mg tablet 5 mg PO BID #180 tabs 01/30/23 Allergies Allergy/AdvReac Type Severity Reaction Status Date / Time No Known Drug Allergies Allergy Verified 02/05/23 14:22 Review of Systems Status of ROS: Reports: 10 or more systems reviewed and unremarkable except as noted in History and below Narrative: Constitutional: No fevers, no weight gain or loss. Eyes: No discharge. No vision changes. HENT: No congestion, no sore throat, no ear pain. Cardiovascular: No chest pain, no palpitations. Respiratory: No shortness of breath, no wheezes. Occasional cough. Gastrointestinal: No abdominal pain, no vomiting, no diarrhea. Genitourinary: No dysuria, no hematuria. Musculoskeletal: Normal range of motion. Skin: No rashes, no pruritis. Neurological: No dizziness, weakness, sensory change, speech change. Endo/Heme/Allergies: No bruising or bleeding. No polydipsia. Pysch: no suicidality, no anxiety, no insomnia. All other systems reviewed and are negative. [facility] Social History Smoking Status: Never smoker Do you use any of these nicotine containing products: None How often do you have a drink containing alcohol: never How often do you have six or more drinks on one occasion: Never AUDIT-C Alcohol total score: 0 Non-prescribed substance use: denies use service: No Exam Narrative: Exam Narrative: Constitutional: Well-developed, well-nourished, no acute distress. HEENT: Normocephalic, atraumatic. Neck: Normal range of motion. Nontender. Supple. Heart: Regular. No murmurs. Normal rate. Intact distal pulses. Lungs: Clear to auscultation. No wheezes, rhonchi, or rales. Chest: Some discomfort on the left lateral lower ribs when palpating in these areas. Abdomen: Normal bowel sounds. Nontender. No rebound tenderness. Genitalia: Deferred. Back: No midline tenderness. Normal range of motion. Extremities: Normal range of motion. No injury. Skin: Intact. No rash. Warm. No erythema or pallor. Neurologic: No altered sensation. No weakness. Alert and oriented. Psychiatric: No suicidality. No anxiety or depression. No insomnia. Nursing notes and vitals signs are reviewed. Const: Vital Signs, click to edit/add: Vital Signs - 24 hr 02/05/23 14:17 Temperature 97.4 F L Pulse Rate [Pulse Oximeter] 106 H Respiratory Rate 20 Blood Pressure [Ri ght Upper Arm] 125/74 Pulse Oximetry 96 Oxygen Delivery Me thod Room Air Course Vital Signs Vital signs: Initial Vital Signs Temperature 97.4 F L 02/05/23 14:17 Temperature Source Temporal Artery Scan 02/05/23 14:17 Pulse Rate 106 H 02/05/23 14:17 Respiratory Rate 20 02/05/23 14:17 Blood Pressure 125/74 02/05/23 14:17 Blood Pressure Mean 91 02/05/23 14:17 Blood Pressure Position Sitting 02/05/23 14:17 Pulse Oximetry 96 02/05/23 14:17 Oxygen Delivery Method Room Air 02/05/23 14:17 Vital Signs Temperature 97.4 F L 02/05/23 14:17 Pulse Rate 106 H 02/05/23 14:17 Respiratory Rate 20 02/05/23 14:17 Blood Pressure 125/74 02/05/23 14:17 Pulse Oximetry 96 02/05/23 14:17 Oxygen Delivery Method Room Air 02/05/23 14:17 Temperature 97.4 F L 02/05/23 14:17 Pulse Rate 106 H 02/05/23 14:17 Respiratory Rate 20 02/05/23 14:17 Blood Pressure 125/74 02/05/23 14:17 Pulse Oximetry 96 02/05/23 14:17 Oxygen Delivery Method Room Air 02/05/23 14:17 Medical Decision Making MDM Narrative Medical decision making narrative: This patient is on Eliquis for recently diagnosed pulmonary embolism. He states that he feels normal but comes in only at the request of the clinician that he called who stated that he should come in here for evaluation because of a couple episodes of blood streaking in the sputum when he coughed. The patient states that he normally does not cough but does so sometimes when sleeping hill awake and have a coughing fit. Patient does arrive with normal vital signs. He is borderline tachycardia but does have evidence of bilateral pulmonary emboli. I did discuss lab and imaging options with the patient but gave reassurance is regarding his exam. He states that he did not feel that he needed to come in but only did so because of a phone call that he made to the clinic where the nurse said that he should come to the ER. Discharge Plan Discharge Clinical Impression: Blood-streaked sputum, Pulmonary embolism Patient Disposition: Home, Self-Care Condition: Stable Additional Instructions: Continue current plans. Follow up with MD as scheduled or needed. Return if symptoms are recurrent or worsening. Prescriptions: No Action tamsulosin [Flomax] 0.4 mg capsule 0.4 mg PO DAILY Qty: 10 0RF apixaban 5 mg tablet 5 mg PO BID Qty: 180 0RF Rx Instructions: Patient to stop Paxlovid gabapentin 300 mg capsule 300 - 600 mg PO QPM PRN (Reason: low back pain) Follow Up/Referrals: Skip Hernandez MD [Primary Care Provider] - Stand Alone Forms: [facility] Info Instructions
== END 2023-02-05 16:03 | disposition home or self-care (01) ==
LOC: ED 15:59
PROVIDERS: Emergency Provider Emergency Medicine Emergency Medical Services; PCP Family Medicine
DX: R04.2 Hemoptysis (principal); I26.99 Other pulmonary embolism without acute cor pulmonale
CPT/HCPCS: 95992; 99283; 99284

== ENCOUNTER 2023-04-25 18:41 | Emergency (ER) | payer OTHER, SELFPAY ==
[2023-04-25 18:52] VITALS: BP 129/81; PULSE 117; RESP 14; TEMP 36.8; O2SAT 97; BMI 28.8
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
--- NOTE | 2023-04-25 19:14 | CT_ITS ---
Final Report Patient: STACI ENLSON Facility:?[facility] Patient ID:?[id number] Site Patient ID:?[id number]. Site :?[id number] Study:?CT Extremity Left Thigh-04/25/2023 8:26:00 PM Ordering Physician:Ghassan Chand Final Report: Indication: pain and swelling. no trauma. on Eliquis. pain area marked with BB on Topogram Technique: Noncontrast CT of the left femur. Please note that all CT scans at this facility use dose modulation, iterative reconstruction, and/or weight-based dosing when appropriate to reduce radiation dose to as low as reasonably achievable. Comparison: None. Findings: No soft tissue swelling or infiltration in the subcutaneous fat identified. The thigh musculature is normal in appearance without evidence for expansion or intramuscular edema. No soft tissue mass identified. No acute fracture of the femur. No aggressive osseous lesion. Impression: Unremarkable noncontrast CT of the left thigh. No acute findings, to include soft tissue swelling, or discrete mass identified. Please note that all CT scans at this facility use dose modulation, iterative reconstruction, and/or weight-based dosing when appropriate to reduce radiation dose to as low as reasonably achievable. Dictated by Staci Carlton MD @ 04/25/2023 8:55:07 PM (Electronic Signature)
[2023-04-25 19:38] LABS: Basophils Percent Auto 0.2 % (0.0-3.0); Eosinophils Percent Auto 0.5 % (0.0-7.0); Hematocrit 44.3 % (37.0-53.0); Immature Granulocytes Pct Auto 0.3 %; Mean Corpuscular HGB Conc 34 gm/dL (32-36); Mean Corpuscular Hemoglobin 30 pg (26-34); Mean Corpuscular Volume 88 fL (80-100); Monocytes Percent Auto 8.4 % (0.0-11.0); Neutrophils Percent Auto 71.6 % (42.0-72.0); Platelet Count* 257 K/uL (140-440); RDW Coefficient of Variation % 13.4 % (11.5-15.5); Red Blood Count 5.03 m/uL (4.30-5.90); White Blood Count* 12.18 K/uL (4.50-11.00)
[2023-04-25 19:41] LABS: Slide Review Reflex No
[2023-04-25 19:50] LABS: Chloride* 105 mmol/L (96-114); Sodium* 138 mmol/L (135-149)
[2023-04-25 19:51] LABS: Potassium* 3.8 mmol/L (3.6-5.1)
[2023-04-25 19:53] LABS: Anion Gap 10 mEq/L (7-15); Blood Urea Nitrogen* 22 mg/dL (5-24); Carbon Dioxide* 23 mmol/L (20-32); Creatinine* 1.1 mg/dL (0.5-1.5); Est. Creatinine Clearance* 89.16; Estimated Glomerular Filt Rate 82 ml/min
[2023-04-25 19:54] LABS: Calcium* 9.3 mg/dL (8.4-10.6); Glucose* 102 mg/dL (60-115)
[2023-04-25] MEDS: ACETAMINOPHEN 500 MG TABLET 1000 MG PO (20:42)
--- NOTE | 2023-04-25 21:17 | ED.NURSE ---
Applied knee immobilizer. Patient stated that it helped tremendously.
== END 2023-04-25 21:19 | disposition home or self-care (01) ==
PROVIDERS: Emergency Provider Family Medicine; PCP Family Medicine
DX: M79.652 Pain in left thigh (principal)
CPT/HCPCS: 36415; 73701; 80048; 85025; 99283; 99284; A9270; Q9967

== ENCOUNTER 2024-09-20 04:45 | Emergency (ER) | payer BC, SELFPAY ==
--- OUTSIDE RECORDS SUMMARY | 2024-09-20 04:47 | XMS_ITS | Clinical Summary ---
Author Organization [facility] Address [address] [place] [id number] Care Team Providers Care Stoker Erector Name Role Phone Skip Hernandez MD Primary Care Provider Allergies No known active allergies Medications gabapentin (NEURONTIN) 300 mg capsuleIndications: Pain TAKE ONE TO TWO CAPSULES BY MOUTH AT BEDTIME FOR BACK PAIN NEEDED 90 Capsule 12 4 Active metoclopramide HCl 10 mg tabletIndications:A cute nonintractable headache, unspecified headache type,Nausea and vomiting, unspecified vomiting type Take 1 Tablet (10 mg) by mouth every 6 hours if needed for Nausea/Vomit ing (headache). 6 Tablet 5 Active Active Problems Problem Noted Date Diagnosed Date COVID-19 virus infection 01/31/2023 Pulmonary embolism 01/31/2023 Overview (02/01/2023): Provoked in setting of COVID-19 Arthropathy of cervical facet joint 12/31/2022 Tubular adenoma 04/08/2020 Overview (04/10/2020): Repeat colonoscopy in 1 year- 04/08/2021 Rectal bleeding Personal history of colonic polyps Encounters Date Type Department Care Team Description 08/02/2024 4:41 PM CDT - 08/02/2024 6:47 PM CDT Emergency [address] [address] Constantine Alvarez PA Acute nonintractable headache, unspecified headache type (Primary Dx); Nausea and vomiting, unspecified vomiting type Discharge Disposition: Home Self Care 08/02/2024 Travel 07/20/2024 Orders Only [facility] [address] [place] [address] Sonam Chowdhury 1 scan: (1-Ord) Zio Report 07/06/[address] [phone] kSip Hernandez MD Rash (From Zio Patch started 2 days after applying ) 06/26/2024 11:00 AM CDT Office Visit [facility] [address] [place] [address] Skip Hernandez MD Lightheaded (Faint feeling off and on x 2-3 months with increased fatigue ) 06/26/2024 Travel from Last 3 Months Immunizations Immunization Administration Dates Next Due COVID-19 vaccine (Moderna 100mcg/0.5mL) PF, MDV 03/21/2020,02/22/2020 DTaP 07/15/1978 INFLUENZA, IIV3 PF (AGE >= 6 MO) 12/14/2023 Influenza, IIV3 (Age >=3 years) 01/25/2012 Influenza, IIV4 12/10/2020,,12/19/2018,2017,12/24/2015,03/01/2014 Influenza, IIV4 (=>6mos) MDV 12/17/2014 Influenza, Injectable, Mdck, Quadrivalent, W/preservative 11/26/2022,11/27/2021,11/28/2020 Polio Virus, Unspecified 07/15/1978 Tdap 01/18/2018,05/04/2006 Family History Medical History Relation Name Comments Cancer Father lung ,skin Cancer Sister skin Relation Name Status Comments Father Sister Social History Tobacco Use Types Packs/Day Years Used Date Smoking Tobacco: Never Smokeless Tobacco: Never Alcohol Use Standard Drinks/Week Comments Yes 0 (1 standard drink = 0.6 oz pur e alcohol) rare PHQ-2 Answer Date Recorded PHQ-2 TOTAL SCORE 0 02/09/2024 Social Connections Answer Date Recorded Do you often feel lonely or isolated from those around you? 0 06/26/2024 Financial Resource Strain Answer Date R ecorded Difficulty of Paying Living Expenses 3 06/26/2024 Difficulty of Paying Living Expenses Not on file 06/26/2024 Food Insecurity Answer Date Recorded Do you worry your food will run out before you are able to buy more? 1 06/26/2024 Transportation Needs Answer Date Record ed Does lack of transportation keep you from medica l appointments? 1 06/26/2024 Does lack of transportation keep you from work, meetings or getting things that you need? 1 06/26/2024 Housing Stability Answer Date Recorded What is your housing situation today? 1 06/26/2024 Interpersonal Safety Answer Date Record ed Are you being hit, kicked, p ushed or yelled at (see row info)? No 08/02/2024 Interpersonal Safety Abuse 12 - 18 Not on file 08/02/2024 Interpersonal Safety Ambulatory Vulnerability No t on file 08/02/2024 Utilities Answer Date Recorded Do you have trouble paying f or utilities (for example, heat, electricity, water, phone)? 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 Gender Identity Not on file Sexual Orientation Not on file Occupation Industry Job Start Date Job End Date Not on file Not on file Not on file Not on file Obstetrics History Last Filed Vital Signs Vital Sign Reading Time Taken Comments Blood Pressure 148/85 08/02/2024 3:45 PM CDT Pulse 71 08/02/2024 3:45 PM CDT Temperature 36.9 C (98.4 F) 08/02/2024 3:45 PM CDT Respiratory Rate 20 08/02/2024 3:45 PM CDT Oxygen Saturation 99% 08/02/2024 3:45 PM CDT Inhaled Oxygen Concentration - - Weight 98.2 kg (216 lb 9.6 oz) 08/02/2024 3:45 P M CDT Height 182.9 cm (6') 08/02/2024 3:45 PM CDT Body Mass Index 29.38 08/02/2024 3:45 PM CDT Plan of Treatment Health Maintenance Due Date Last Done Comments HIV for age 15-65 1988 Hepatitis C screening for ag e 18-79 05/07/1991 Hepatitis B series for 19+ ( 1 of 3 - 19+ 3-dose series) 1992 Colonoscopy through age 75 05/19/2022 05/19/2021, Pneumococcal series for age 50+ (1 of 1 - PCV) 05/07/2023 Zoster (shingles) series for age 50+ (1 of 2) 05/07/2023 COVID-19 vaccine series ( season) 2023 01/23/2021, 03/21/2020, 02/22/2020 Influenza Vaccine (#1) 2024 , 11/26/2022, 11/27/2021, Additional history exists Depression screening for age 12+ 02/08/2025 02/09/2024, 03/05/2021, 03/26/2020, Additional history exists BMI (ht and wt on same day) for age 18+ 06/26/2025 06/26/2024, 02/09/2024, 2023, Additional history exists Tetanus booster 01/19/2028 01/18/2018, 05/04/2006 Lipids for age 45-75 01/27/2028 01/26/2023, 01/19/20 18 Procedures Procedure Name Priority Date/Time Associated Diagnosis Comments CBC W PLT NO DIFF STAT 08/02/2024 4:0 4 PM CDT BASIC METABOLIC PANEL STAT 08/02/2024 4:04 PM CDT EKG 12 LEAD STAT 08/02/2024 3:55 PM CDT EXTENDED HOLTER Routine 07/20/2024 Episodic lightheadedness LIPID PANEL W REFLEX MEASURED LDL Routine 01/26/2023 9:12 AM 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 Routine physical examination COLONOSCOPY 05/19/2021 9:53 AM CDT from Last 3 Months or Most Recently Relevant to Health Maintenance Results * (ABNORMAL) CBC W PLT NO DIFF (08/02/2024 4:04 PM CDT) WHITE BLOOD COUNT 14.4(H) 4.5 - 11.0 thou/cu mm 08/02/2024 4:11 PM [facility] RED BLOOD COUNT 5.14 4.30 - 5.90 mil/cu mm 08/02/2024 4:11 PM [facility] HEMOGLOBIN 15.7 13.5 - 17.5 g/dL 08/02/2024 4:11 PM [facility] HEMATOCRIT 45.9 37.0 - 53.0 % 08/02/2024 4:11 PM [facility] MCV 89 80 - 100 fL 08/02/2024 4:11 PM [facility] MCH 30.5 26.0 - 34.0 pg 08/02/2024 4:11 PM [facility] MCHC 34.2 32.0 - 36.0 g/dL 08/02/2024 4:11 PM [facility] RDW 13.5 11.5 - 15.5 % 08/02/2024 4:11 PM [facility] PLATELET COUNT 241 140 - 440 thou/cu mm 08/02/2024 4:11 PM [facility] MPV 10.0 6.5 - 11.0 fL 08/02/2024 4:11 PM [facility] Blood BLOOD SPECIMEN / Unknown Venipuncture / Unknown 08/02/2024 4:04 PM CDT 08/02/2024 4:07 PM CDT [facility] - 08/02/2024 4:11 PM CDT RN to order if patient presents with abdominal pain. us Constantine BARRON HEMATOLOGY Final Re sult [facility] [address] [place] [address] * (ABNORMAL) BASIC METABOLIC PANEL (08/02/2024 4:04 PM CDT) [facility] SODIUM 139 136 - 145 mmol/L 08/02/2024 4:38 PM [facility] POTASSIUM 4.1 3.5 - 5.1 mmol/L 08/02/2024 4:38 PM [facility] CHLORIDE 102 98 - 107 mmol/L 08/02/2024 4:38 PM [facility] CO2,TOTAL 25 22 - 29 mmol/L 08/02/2024 4:38 PM [facility] ANION GAP 12 5 - 18 08/02/2024 4:38 PM [facility] GLUCOSE 133(H) 70 - 99 mg/dL 08/02/2024 4:38 PM [facility] CALCIUM 9.5 8.8 - 10.4 mg/dL 08/02/2024 4:38 PM [facility] Comment: Reference ranges for this test were updated on 12/28/2023 to reflect our healthy population more accurately. Reference range changes are not retroactively applied to results, but previous results using the same methodology can be interpreted in the context of the new reference range. BUN 20 6 - 20 mg/dL 08/02/2024 4:38 PM [facility] CREATININE 1.10 0.70 - 1.20 mg/dL 08/02/2024 4:38 PM [facility] BUN/CREAT RATIO 18 10 - 20 4:38 PM [facility] eGFR 81(L) >90 mL/min/1. 73m2 08/02/2024 4:38 PM [facility] Comment:As of 2021, eG FR is calculated by the CKD-EPI creatinine equation without race adjustment. eGFR can be influenced by muscle mass, exercise, and diet. The reported eGFR is an estimation only and is only applicable if the renal function is stable. Blood BLOOD SPECIMEN / Unknown Venipuncture / Unknown 08/02/2024 4:04 PM CDT 08/02/2024 4:07 PM CDT us Constantine Jerardo BARRON CHEMISTRY Final Re sult [facility] [address] [place] [address] * EKG 12 LEAD (08/02/2024 3:55 PM CDT) Pathologist [facility] Interpretation Sinus rhythm with occasional Premature ventricular complexes Otherwise normal ECG When compared with ECG of 30-Jan-2023 22:56, Premature ventricular complexes are now Present no boris BEYOND NOW Ventricular Rate 69 BPM BEYOND NOW Atrial Rate 69 BPM BEYOND NOW P-R Interval 156 ms BEYOND NOW QRS Duration 90 ms BEYOND NOW QT 386 ms BEYOND NOW QTc 413 ms BEYOND NOW P [place] 35 degrees BEYOND NOW R [place] 44 degrees BEYOND NOW T [place] 53 degrees BEYOND NOW 08/02/2024 3:55 PM CDT 08/02/2024 10:34 PM CDT us Constantine BARRON EKG ORD Final Re sult [facility] NOW [place], [place] * ZIO PATCH XT - weekly to monthly symptoms. (07/20/2024) Skip Hernandez MD CARDIAC SERVICES ORD Fi nal Result * (ABNORMAL) LIPID PANEL W REFLEX MEASURED LDL (01/26/2023 9:12 AM 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) CHOLESTEROL,TOTAL 222(H) 100 - 199 mg/dL 01/26/2023 9:48 AM [facility] Comment: Cholesterol, Total Reference Ranges Desirable <200 mg/dL Borderline 200-239 mg/dL High >=240 mg/dL TRIGLYCERIDES 117 <150 mg/dL 01/26/2023 9:48 AM [facility] HDL CHOLESTEROL 57 >40 mg/dL 9:48 AM [facility] NON-HDL CHOLESTEROL 165(H) <145 mg/dl 01/26/2023 9:48 AM [facility] CHOL/HDL RATIO 3.89 <4.50 01/26/2023 9:48 AM [facility] LDL CHOLESTEROL 142(H) <=130 mg/dL 01/26/2023 9:48 AM [facility] VLDL CHOLESTEROL 23 <=30 mg/dL 01/26/2023 9:48 AM 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 [facility] PROVIDER ORDERED STATUS RANDOM 01/26/2023 9:48 AM 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 [facility] Blood BLOOD SPECIMEN / Unknown Venipuncture / Unknown 01/26/2023 9:12 AM 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 01/26/2023 9:14 AM 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 Skip Hernandez MD CHEMISTRY Final R esult [facility] [address] [place] [address] * COLONOSCOPY (05/19/2021 9:53 AM CDT) 05/19/2021 9:53 AM CDT Narrative Transcriptions Phillip Wei MD - 05/19/2021 1:12 PM CDT Patient Name: Ricci Watson Procedure Date: 05/19/2021 Gender: Male Date of : 1975 Admit Type: Ambulatory Procedure: Colonoscopy Proceduralist: Phillip Rosales Indications/Pre-Op Diagnosis: High risk colon cancer surveillance:Personal history of colonic polyps Medications: Propofol per Anesthesia, GeneralAnesthesia Procedure Description: The patient had risks, benefits and alternatives explained to andgave informed consent. The patient had a stable cardiopulmonary status and judged an adequate candidate for conscious sedation. The colonoscope was passed through the anus and advanced to 3 cm into the ileum. The colonoscopy was performed without difficulty. The colonoscopy was somewhat difficult due to significant looping. The patient tolerated the procedure well. The quality of the bowel preparation was good. The terminal ileum, ileocecal valve,appendiceal orifice, and rectum were photographed. Complications: No immediate complications. Estimated Blood Loss & Specimen: Estimated blood loss: none. Specimen collected - None Findings: The perianal and digital rectal examinations were normal. The colon (entire examined portion) appeared normal. The retroflexed view of the distal rectum and anal verge was normaland showed no anal or rectal abnormalities. Impressions/Post-Op Diagnosis: - The entire examined colon is normal. - No specimens collected. Recommendation: - Discharge patient to home. - Resume previous diet. - Continue present medications. - Repeat colonoscopy in 3 years for surveillance. Moderate Sedation: See the other procedure note for documentation of moderate sedationwith intraservice time. Phillip Wei, 05/19/2021 1:12:09 PM This report has been signed electronically. Note Initiated On: 05/19/2021 9:53 AM Phillip Wei MD PROCEDURE ORD Final Res ult from Last 3 Months or Most Recently Relevant to Health Maintenance Insurance [facility] [id number] [id number] Advance Directives * Full Code (Latest Code Status on File) Date Activated Date Inactivated Comments 01/31/2023 1:18 AM 02/01/2023 3:27 PM Question Answer Comments Code Status Discussion: Reviewed Preferences * Full Code Date Activated Date Inactivated Comments 05/19/2021 10:53 AM 05/19/2021 3:51 PM Question Answer Comments Code Status Discussion: Per Existing Order * Full Code Date Activated Date Inactivated Comments 04/08/2020 11:30 AM 04/08/2020 4:01 PM Question Answer Comments Code Status Discussion: Per Existing Order Care Teams Stoker Erector Relationship Specialty Start Date End Date Skip Hernandez MD [address] [place] [address] SHERRYISIS JERRY [address] PCP - General 03/07/12
--- OUTSIDE RECORDS SUMMARY | 2024-09-20 04:47 | XMS_ITS | Clinical Summary ---
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 For routine questions regarding patient records, call [phone] during business hours, M-F 8:00 AM - 5:00 PM Central Time. Record requests for emergency care only can be directed to [phone] at any time.[facility] Allergies No known active allergies Medications apixaban (ELIQUIS) 5 mg tablet Take 5 mg by mouth. 02/04/2023 Active gabapentin (NEURONTIN) 300 mg capsule TAKE ONE TO TWO CAPSULES BY MOUTH AT BEDTIME FOR BACK PAIN NEEDED 01/26/2023 Active oxyCODONE-aceta minophen (PERCOCET) 5-325 mg per tablet Take 1 tablet by mouth every 4 (four) hours as needed. Active tamsulosin (FLOMAX) 0.4 mg 24 hr capsule Take 0.4 mg by mouth. 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 Gender Identity Not on file Sexual Orientation Not on file Plan of Treatment Health Maintenance Due Date Last Done Comments CT Colonography 1973 Cologuard 1973 Colonoscopy 1973 Colorectal Cancer Screening 1973 FIT 1973 HIV Screening 1973 Hepatitis C Screening 1973 IPV Vaccines (2 of 3 - 4-dos e series) 08/12/1978 07/15/1978 Hepatitis B Vaccines (1 of 3 - 19+ 3-dose series) 1992 Pneumococcal vaccine (50+ ye ars) (1 of 1 - PCV) 05/07/2023 Zoster Vaccines (1 of 2) 05/07/2023 COVID-19 Vaccine (4 - 2023-2 5 season) 2023 01/23/2021, 03/21/2020, 02/22/2020 Depression Screening (Annual PHQ-2) 02/23/2024 Influenza Vaccine (#1) 2024 , 11/27/2021, 12/10/2020, Additional history exists Fasting Glucose for Diabetes Screening 01/30/2026 01/30/2023, 01/26/2023, 01/22/2023, Additional history exists DTaP,Tdap,and Td Vaccines (4 - Td or Tdap) 01/19/2028 01/18/2018, 05/04/2006, 07/15/1978 Lipid (Cholesterol) Screening 01/27/2028 01/26/2023, 01/18/2018 Insurance [facility]
[2024-09-20 04:52] VITALS: BP 147/87; PULSE 65; RESP 20; TEMP 36.1; O2SAT 96; BMI 29.5
--- NOTE | 2024-09-20 05:05 | ED.GENADULT ---
HPI - General Adult General Time Seen by Provider: 05:05 Date Seen: 09/20/24 Chief complaint: Unspecified Complaint, Adult Stated complaint: thinks he has Covid Time Seen by Provider: 09/20/24 05:03 Source: patient Mode of arrival: ambulatory History of Present Illness HPI narrative: Ricci is a 49 yo male with a past medical history of COVID in 01/2023 complicated by PE that was treated with anticoagulation x 3 months who presents to the emergency department for evaluation with concerns of COVID. Patient reports that he started developing symptoms on Wednesday with cold-like symptoms, and a tickle in his throat. Patient states that yesterday morning Wednesday around 5:00 a.m. he woke up with an episode of shortness of breath. Patient states he was having difficulty getting air, speaking in full sentences. Patient reports that this episode resolved shortly on his phone and patient felt fine all day and went to work. Patient states that he woke up this morning around 3:00 a.m. because he was not feeling well and cannot sleep. Patient went to go take some medicine and took a total of 3 COVID test however his test were positive. His 's tests were negative. Patient denies any fever, chills, chest pain, abdominal pain, nausea, vomiting, diarrhea. Patient reports cold-like symptoms, a little sore throat, dry cough with intermittent white yellow sputum production. Patient currently denies any chest pain, shortness of breath. Patient denies any lower extremity edema or calf tenderness. Patient is active at work. No other complaints. Patient states that earlier this year back in February use having intermittent episodes of dizzy spells. Patient had a Zio patch back in June which was unremarkable. Related Data Home Medications ?Medication ?Instructions ?Recorded ?Confirmed gabapentin 300 mg capsule 300 - 600 mg PO QPM PRN low back 02/05/23 04/25/23 pain Previous Rx's ?Medication ?Instructions ?Recorded apixaban 5 mg tablet 5 mg PO BID #180 tabs 01/30/23 Allergies Allergy/AdvReac Type Severity Reaction Status Date / Time No Known Drug Allergies Allergy Verified 02/05/23 14:22 Review of Systems Narrative: Past medical history, past surgical history, medications, allergies, family history, and social history were reviewed with the patient. No additional pertinent items. A medically appropriate review of systems was performed with pertinent positives and negatives noted in HPI, all other systems negative. [facility] Social History Smoking Status: Never smoker Do you use any of these nicotine containing products: None How often do you have a drink containing alcohol: never How often do you have six or more drinks on one occasion: Never AUDIT-C Alcohol total score: 0 Non-prescribed substance use: denies use service: No Exam Narrative: Exam Narrative: General: Afebrile, no acute distress HEENT: Normocephalic, atraumatic, conjunctiva normal. Posterior pharynx with mild erythema, no swelling, no exudate, no asymmetry MMM Neck: non-tender, supple Cardio: regular rate. regular rhythm Resp: Normal work of breathing, no respiratory distress, lungs clear bilaterally, no wheezing, rhonchi, rales Chest/Back: no visual signs of trauma, no midline tenderness, no CVA tenderness Abdomen: soft, non distension, no tenderness, no peritoneal signs Neuro: alert and fully oriented. CN II-XII grossly intact. Grossly normal strength and sensation in all extremities. MSK: no deformities. Normal range of motion, no lower extremity edema or calf tenderness Integumentary/Skin: no rash visualized, normal color Psych: normal affect, normal behavior Const: Vital Signs, click to edit/add: Vital Signs - 24 hr 09/20/24 04:52 Temperature 96.9 F L Pulse Rate [Pulse Oximeter] 65 Respiratory Rate 20 Blood Pressure [Ri ght Upper Arm] 147/87 H Pulse Oximetry 96 Oxygen Delivery Me thod Room Air Course Vital Signs Vital signs: Initial Vital Signs Temperature 96.9 F L 09/20/24 04:52 Temperature Source Temporal Artery Scan 09/20/24 04:52 Pulse Rate 65 09/20/24 04:52 Pulse Rhythm Regular 09/20/24 04:52 Respiratory Rate 20 09/20/24 04:52 Blood Pressure 147/87 H 09/20/24 04:52 Blood Pressure Mean 107 H 09/20/24 04:52 Pulse Oximetry 96 09/20/24 04:52 Oxygen Delivery Method Room Air 09/20/24 04:52 Vital Signs Temperature 96.9 F L 09/20/24 04:52 Pulse Rate 65 09/20/24 04:52 Respiratory Rate 20 09/20/24 04:52 Blood Pressure 147/87 H 09/20/24 04:52 Pulse Oximetry 96 09/20/24 04:52 Oxygen Delivery Method Room Air 09/20/24 04:52 Temperature 96.9 F L 09/20/24 04:52 Pulse Rate 65 09/20/24 04:52 Respiratory Rate 20 09/20/24 04:52 Blood Pressure 147/87 H 09/20/24 04:52 Pulse Oximetry 96 09/20/24 04:52 Oxygen Delivery Method Room Air 09/20/24 04:52 Medical Decision Making MDM Narrative Medical decision making narrative: Ricci is a 49 yo male with a past medical history of COVID in 01/2023 complicated by PE that was treated with anticoagulation x 3 months who presents to the emergency department for evaluation with concerns of COVID. Upon arrival patient is nontoxic appearing, afebrile, no distress. Patient is slightly hypertensive upon arrival 147/87, heart rate 65, oxygen 96% on room air. Patient with no respiratory distress, no tachypnea, no tachycardic. Differential diagnosis includes but is not limited to COVID versus influenza versus RSV versus viral illness versus bronchitis versus less likely pneumonia (afebrile, lungs clear to auscultation bilaterally, no shortness of breath, no hypoxia), versus less likely PE (no tachypnea, no tachycardia, no hypoxia, no respiratory distress). Patient declined anything for his symptoms at this time. I reviewed viral testing and patient is positive for COVID which clinically fits his symptoms. I discussed results with patient, consider further testing with laboratory testing, chest x-ray however low suspicious for pneumonia at this time. Patient does have history of blood clot that was treated with anticoagulation for 3 months. Consider further evaluation with CT imaging however patient with no current chest pain, no shortness of breath, no hypoxia, no tachycardia. I suspect patient's symptoms are most likely secondary to COVID in overall patient is nontoxic appearing. Patient was able to ambulate in the emergency department with no shortness of breath, lightheadedness, chest pain, no tachycardia, and oxygen 97% with ambulation. Given shared decision making at this time will hold off on further testing at this time. Plan for discharge with continued supportive care, close outpatient follow-up, and strict return precautions discussed if persistent high fever, difficulty breathing, chest pain, syncope, or worsening symptoms. Patient understands and agrees with the plan. Medical Records Medical records reviewed: Yes I reviewed the patient's medical records Lab Data Labs: Lab Results 09/20/24 Range/Units 05:00 SARS-CoV-2 (PCR) POSITIVE SARS-CoV-2 A (Negative) Influenza Type A (PCR) Negative PCR FLU A (Negative) Influenza Type B (PCR) Negative PCR FLU B (Negative) RSV (PCR) Negative PCR RSV (Negative) Discharge Plan Discharge Clinical Impression: COVID Patient Disposition: Home, Self-Care Condition: Stable Additional Instructions: Please follow-up with your primary care provider in the next 5-7 days for further evaluation and follow-up. Please call to schedule appointment. Please rest, drink plenty of fluids. Please continue [id number] cough/cold medications for comfort. We also recommend alternating Tylenol 1000 mg and ibuprofen 600 mg every 6 hours as needed for fever, body aches. Please return to the emergency department if you develop persistent high fever, chest pain, difficulty breathing, syncope, or any worsening symptoms. It was a pleasure taking care of you today. We hope you feel better soon. Prescriptions: No Action apixaban 5 mg tablet 5 mg PO BID Qty: 180 0RF Rx Instructions: Patient to stop Paxlovid gabapentin 300 mg capsule 300 - 600 mg PO QPM PRN (Reason: low back pain) Follow Up/Referrals: Skip Hernandez MD [Primary Care Provider, [facility]] Stand Alone Forms: [employer] Info Instructions
[2024-09-20 05:42] LABS: PCR FLU A Negative PCR FLU A (Negative); PCR FLU B Negative PCR FLU B (Negative); PCR RSV Negative PCR RSV (Negative); SARS PCR* POSITIVE SARS-CoV-2 (Negative)
--- NOTE | 2024-09-20 05:55 | ED.NURSE ---
Walking test with pulse oximetry 97% and 72 HR. No complaints of SOB or being dizzy during ambulation
== END 2024-09-20 06:04 | disposition home or self-care (01) ==
PROVIDERS: Emergency Provider Emergency Medicine; PCP Family Medicine
DX: U07.1 COVID-19 (principal)
CPT/HCPCS: 87631; 99283; 99285